=== PATIENT | male | born 1960 | race Caucasian/White ===

== ENCOUNTER 2017-07-23 08:25 | Emergency (ER) | payer BC ==
[~2017-07-23] VITALS: Ht 170.2 cm; Wt 81.0 kg
[2017-07-23] MEDS ORDERED: ONDANSETRON HCL 4MG/2ML VIAL IV STA (10:47)
[2017-07-23] MEDS ORDERED: KETOROLAC 30MG/ML VIAL IV STA (10:47)
[2017-07-23] MEDS ORDERED: SODIUM CHLORIDE 0.9% 1,000 ML IV ONE (10:47)
[2017-07-23 11:28] LABS: CLARITY URINE CLEAR (CLEAR); COLOR URINE YELLOW (YELLOW); KETONES URINE 1+ (NEGATIVE); LEUKOCYTE ESTERASE URINE NEGATIVE (NEGATIVE); NITRITE URINE NEGATIVE (NEGATIVE); OCCULT BLOOD URINE 2+ (NEGATIVE); PH URINE 8.5 (4.5-8.0); PROTEIN URINE NEGATIVE (NEGATIVE); SPECIFIC GRAVITY URINE 1.018 (1.005-1.030); UROBILINOGEN URINE 0.2 E.U./dL (0.2-1.0)
[2017-07-23 11:32] LABS: HEMATOCRIT. 40.7 % (42.0-52.0); HEMOGLOBIN. 13.8 g/dL (14.0-18.0); MEAN CORPUSCULAR HEMOGLOBIN 29.7 pg (28.0-32.0); MEAN CORPUSCULAR VOLUME 87.7 fL (80.0-94.0); MEAN PLATELET VOLUME 7.3 fl (7.4-10.4); PLATELET 319 x1000/uL (130-400); RED BLOOD CELL COUNT 4.64 mill/uL (4.7-6.1); RED CELL DISTRIBUTION WIDTH 13.6 % (11.6-14.6)
[2017-07-23 11:36] LABS: INR 1.1; PROTHROMBIN TIME 10.9 sec (9.4-11.6)
[2017-07-23 11:57] LABS: PLATELET ESTIMATE NORMAL
[2017-07-23 12:00] LABS: CARBON DIOXIDE 24 mEq/L (21-32); CHLORIDE 105 mEq/L (98-107)
[2017-07-23 13:10] VITALS: BP 115/75
== END 2017-07-23 14:10 | disposition home or self-care (01) ==
LOC: ER 08:35
DX: N20.0 Calculus of kidney (principal); N40.0 Benign prostatic hyperplasia without lower urinary tract symptoms; R11.2 Nausea with vomiting, unspecified
CPT/HCPCS: 36415; 76770; 80053; 81001; 83690; 85025; 85610; 96361; 96374; 96375; 99285; J1885; J2405; J7030; Z7610